=== PATIENT | female | born 1985 | race Caucasian/White ===

== ENCOUNTER 2016-12-12 01:29 | Emergency (ER) | payer MEDICAID, OTHER ==
[~2016-12-12] VITALS: Ht 172.7 cm; Wt 102.6 kg
[~2016-12-12 01:29] MED LIST: PRENATAL VITAMINS
[2016-12-12 01:31] VITALS: BP 151/101
== END 2016-12-12 03:09 | disposition home or self-care (01) ==
LOC: ED 02:30
DX: J01.00 Acute maxillary sinusitis, unspecified (principal); H92.03 Otalgia, bilateral; Z88.0 Allergy status to penicillin
CPT/HCPCS: 99283

== ENCOUNTER 2017-03-08 16:51 | Emergency (ER) | payer OTHER ==
[~2017-03-08] VITALS: Ht 172.7 cm; Wt 101.6 kg
[2017-03-08 17:00] VITALS: BP 142/91
[2017-03-08 18:14] LABS: RAPID INFLUENZA A Negative (Negative); RAPID INFLUENZA B Negative (Negative)
[2017-03-08 18:26] LABS: HCG UR LOT HCG7030192
[2017-03-08 18:52] LABS: HCG UR OBC PASS
== END 2017-03-08 20:11 | disposition home or self-care (01) ==
LOC: ED 18:53
DX: N30.90 Cystitis, unspecified without hematuria (principal); J11.1 Influenza due to unidentified influenza virus with other respiratory manifestations
CPT/HCPCS: 71020; 81001; 81025; 87077; 87086; 87186; 87400; 99285